=== PATIENT | female | born 1990 | race Caucasian/White ===

== ENCOUNTER 2020-02-09 20:10 | Emergency (ER) | payer SELFPAY ==
[~2020-02-09] VITALS: Ht 167.6 cm; Wt 61.4 kg
[2020-02-09] MEDS ORDERED: KETOROLAC TROMETHAMINE 60 MG/2 ML VIAL IM ONE (22:30)
[2020-02-10 00:44] VITALS: BP 123/74
== END 2020-02-10 00:49 | disposition home or self-care (01) ==
LOC: EMS 20:12
DX: S06.0X1A Concussion with loss of consciousness of 30 minutes or less, initial encounter (principal); S16.1XXA Strain of muscle, fascia and tendon at neck level, initial encounter; X58.XXXA Exposure to other specified factors, initial encounter; Y93.89 Activity, other specified; Y92.89 Other specified places as the place of occurrence of the external cause; Y99.8 Other external cause status
CPT/HCPCS: 70450; 72125; 96372; 99285; J1885